=== PATIENT | male | born 1980 | race Caucasian/White ===

== ENCOUNTER 2017-09-04 08:13 | Day surgery (SDC) | payer MEDICAID, OTHER ==
--- NOTE | 2017-08-27 12:15 | RADIOLOGY REPORT (SQ) ---
EXAM DESCRIPTION: CHEST PA/LATERAL COMPLETED DATE/TIME: 08/27/2017 12:02 pm REASON FOR STUDY: PRE-OP COMPARISON: None. EXAM PARAMETERS: NUMBER OF VIEWS: two views TECHNIQUE: Digital Frontal and Lateral radiographic views of the chest acquired. RADIATION DOSE: NA LIMITATIONS: none FINDINGS: LUNGS AND PLEURA: No opacities, masses or pneumothorax. No pleural effusion. MEDIASTINUM AND HILAR STRUCTURES: No masses or contour abnormalities. HEART AND VASCULAR STRUCTURES: Heart normal size. No evidence for failure. BONES: No acute findings. HARDWARE: None in the chest. OTHER: No other significant finding. IMPRESSION: NO SIGNIFICANT RADIOGRAPHIC FINDING IN THE CHEST. TECHNICAL DOCUMENTATION: JOB ID: [id number] [employer]- All Rights Reserved Reading location - IP/workstation name: [email or web address]
[2017-08-27 12:43] LABS: HEMATOCRIT 44.1 % (37.9-51.0); HEMOGLOBIN 15.7 g/dL (13.5-17.0); MEAN CORPUSCULAR HEMOGLOBIN 31.8 pg (27.0-33.4); MEAN CORPUSCULAR HGB CONC 35.7 g/dL (32.0-36.0); MEAN CORPUSCULAR VOLUME 89 fl (80-97); PLATELET COUNT 310 10^3/uL (150-450); RED BLOOD COUNT 4.95 10^6/uL (4.35-5.55); RED CELL DISTRIBUTION WIDTH 13.8 % (11.5-14.0); WHITE BLOOD COUNT 7.7 10^3/uL (4.0-10.5)
[2017-08-27 12:57] LABS: APPEARANCE,URINE CLEAR; BILIRUBIN,URINE NEGATIVE (NEGATIVE); COLOR,URINE YELLOW; GLUCOSE, URINE NEGATIVE (NEGATIVE); KETONES,URINE NEGATIVE (NEGATIVE); LEUKOCYTE ESTERASE,URINE NEGATIVE (NEGATIVE); NITRITE,URINE NEGATIVE (NEGATIVE); PROTEIN,URINE NEGATIVE (NEGATIVE); UROBILINOGEN,URINE NEGATIVE mg/dL (<2.0)
[2017-08-27 13:05] LABS: ANION GAP 12 (5-19); BLOOD UREA NITROGEN 9 mg/dL (7-20); CALCIUM 9.8 mg/dL (8.4-10.2); CARBON DIOXIDE 26 mmol/L (22-30); CHLORIDE 106 mmol/L (98-107); GLUCOSE 78 mg/dL (75-110); POTASSIUM 4.8 mmol/L (3.6-5.0); SODIUM 143.6 mmol/L (137-145)
--- NOTE | 2017-08-27 14:31 | EKG REPORT ---
SEVERITY:- NORMAL ECG - SINUS RHYTHM : Confirmed by: Aftab Jimenez MD 27-Aug-2017 14:30:47
[~2017-09-04 08:13] MED LIST: CEFAZOLIN SODIUM 2 GM in NORMAL SALINE 100 ML IV PRN; LACTATED RINGERS 1000 ML IV PRN; LIDOCAINE 0.5% INJ-PF (5 MG/ML) 50 ML SDV SUBCUT PRN
[2017-09-04] MEDS ORDERED: BUPIVACAINE HCL 0.5 % INJ/PF 30 ML SDV ONE (09:18)
[2017-09-04] MEDS ORDERED: EPINEPHRINE INJ/PF 1 MG/1 ML AMPULE ONE ×2 (09:18→09:20)
[2017-09-04] MEDS ORDERED: FENTANYL CITRATE INJ/PF 100 MCG/2 ML AMPUL ONE ×2 (10:17→12:14)
[2017-09-04] MEDS ORDERED: MIDAZOLAM 2 MG/2 ML INJ ONE (10:17)
[2017-09-04] MEDS ORDERED: ONDANSETRON HCL INJ/PF 4 MG/2 ML SDV ONE (10:18)
[2017-09-04] MEDS ORDERED: ACETAMINOPHEN 0 ML IV ONE (10:18)
[2017-09-04] MEDS ORDERED: DEXAMETHASONE SOD PHOSPHATE INJ 4 MG/1 ML VIAL ONE (10:18)
[2017-09-04] MEDS ORDERED: PROPOFOL INJ 200 MG/20 ML VIAL IV ONE (10:18)
[2017-09-04] MEDS ORDERED: PROMETHAZINE HCL INJ 25 MG/1 ML VIAL IV PRN ×2 (11:26)
[2017-09-04] MEDS ORDERED: DIPHENHYDRAMINE HCL 50 MG/ML VIAL IV PRN (11:26)
[2017-09-04] MEDS ORDERED: FENTANYL CITRATE INJ/PF 100 MCG/2 ML AMPUL IV PRN ×3 (11:26)
[2017-09-04] MEDS ORDERED: OXYCODONE-ACETAMINOPHEN 5-325 MG TABLET PO PRN ×4 (11:26→13:05)
[2017-09-04] MEDS ORDERED: MEPERIDINE HCL/PF INJ 25 MG/1 ML DISP.SYRIN IV PRN (11:26)
[2017-09-04] MEDS ORDERED: ACETAMINOPHEN 100 ML IV ONE (12:15)
[2017-09-04] MEDS ORDERED: MORPHINE SULFATE 10 MG/ML INJ ONE (12:33)
[2017-09-04] MEDS ORDERED: LORAZEPAM INJ 2 MG/1 ML VIAL ONE (12:39)
[2017-09-04] MEDS ORDERED: LORAZEPAM INJ 2 MG/1 ML VIAL IV ONE (12:49)
[2017-09-04] MEDS ORDERED: PROMETHAZINE HCL INJ 25 MG/1 ML VIAL ONE (13:02)
--- NOTE | 2017-09-04 13:03 | Operative Report ---
Operative Report DATE OF SURGERY: 09/04/17 PREOPERATIVE DIAGNOSIS: Right knee ACL tear POSTOPERATIVE DIAGNOSIS: Same. Posterior horn lateral meniscus tear. 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 Once the tube was secured a thigh tourniquet was applied to the right lower extremity was prepped and draped in a normal surgical fashion. Timeout was done identifying the right knee has a correct site. The extremity was exsanguinated with an Esmarch and then the tourniquet was inflated at 300 mmHg 0.25% of Marcaine was injected into the anticipated portal sites. 11 blade was used to establish the anterolateral portal. Scope was introduced and the capsule was distended with sterile saline solution. Under direct visualization the anteromedial portal sites was established first by applying a spinal needle and then established with the 11 blade. Probe was introduced and a diagnostic scope was done. As noted patient had a torn ACL off of the lateral femoral wall with partial healing to the PCL. Patient also had a chondral defect on the medial femoral condyle that was about 1cm x 1 cm and only grade 3 changes. Looking at the lateral compartment patient had a tear of the posterior horn of the lateral meniscus. Attempted repair was done at this point but was unsuccessful therefore partial lateral meniscectomy was done after the tissue is no longer viable for repair. At this point I turned my attention to preparing the lateral wall and tibial spine for tunnel drilling. I used the combination of 5.5 mm shaver and 50 radiofrequency ablator to do my debridement of the torn anterior cruciate ligament and expose the lateral wall. I used a chondral pick to lyndsey where I would like to place my femoral tunnel. This was confirmed with the medial over- the-top guide. I flexed the knee as much as possible and use my spade tip guidepin and drilled through. I was able to measure about a 30 mm tunnel before I pierced the cortex and passed the pin through the lateral aspect of the thigh. I used the 10 mm low-profile reamer then to do my femoral tunnel and stopped at 25 mm in depth. I used a shaver then to clean out the bony debris. I visualized the tunnel with a camera and make sure had a back wall and did not pierced the lateral cortex. At this point I fed a FiberWire through the eyelet and passed it through the lateral aspect of the thigh. This FiberWire were then later on the shuttle through the tibial tunnel to shuttle the graft. In the meantime it was clamped outside the skin. At this point I grabbed my retro-cutter guide which was marked at [address] on the anterior cruciate ligament footprint on the tibial side. This had been cleaned off with a shaver and bur to Fregosi ablator as well. I used the scope anterior horn of the lateral meniscus as a guide as well as 7 mm anterior to the PCL. Once I was happy with the placement I did a medial incision and measured the tibial tunnel to be []. Once again I use the shaver to clean out the debris in the knee. The Achilles was preparing the back table and the made sure that I was able to pass through it 10 mm tunnel with the bone plug side and the tendinous portion. The graft had been placed in a moist sponge and ready for insertion once the tunnels were completed. I used a probe to grabbed the have the portion of the FiberWire suture that was left in the femoral tunnel and passed it through the tibial tunnel. At this point we shuttled the Achilles tendon allograft through the tibial tunnel into the femoral tunnel successfully using the bone plug to fit nicely in the femoral tunnel. I proceeded to notch the tunnel and placed a nitinol wire. I placed a 7 x 23mm bicomposite screw securing the bone plug in the femoral tunnel. I then turned my attention to the tibial tunnel where I notched it and then placed a nitinol wire for placement of the screw. While holding the leg in a reverse Vadim position by my assistant professor of art I pulled tension on the tibial side of the graft and placed my interference screw securing the graft. Vadim was used to showing good endpoint and minimal translation. Scope was introduced and I used a probe to check the tension on the anterior cruciate ligament graft. I was satisfied with the tension so at this point fluid was removed from the knee and the instruments were removed. I proceeded to close my 2 portal sites with 3-0 nylon and the tibial incision with 0 Vicryl to Vicryl and 2-0 nylon. Xeroform, 4 x 4, AVD pad, Sof-Rol was applied and then overwrapped with an Richar bandage. Tourniquet was let down and the drapes were removed. Patient was extubated and sent to PACU in stable condition.
--- NOTE | 2017-09-04 13:05 | Discharge Summary ---
Discharge Summary (SDC) - Discharge Final Diagnosis: Right knee ACL reconstruction and partial lateral meniscectomy Date of Surgery: 09/04/17 Discharge Date: 09/04/17 Treatment or Instructions: Patient instructed to follow up in 10-14 days. Patient instructed to keep dressing dry clean and intact for 4 days and then allowed to remove. At that point patient can shower and apply Band-Aids as needed. Patient can weight-bear as tolerated and do range of motion exercises as tolerated. Crutches for support and safety. Can wean crutches once stable on his feet. Patient instructed to call the office if patient develops fevers chills redness and drainage from the surgical sites. Prescriptions: Oxycodone HCl/Acetaminophen [Percocet 5-325 mg Tablet] 1 - 2 tab PO ASDIR PRN # 40 tablet PRN Reason: Referrals: EMILE BARRETO MD [Primary Care Provider] - Discharge Diet: As Tolerated Respiratory Treatments at Home: Deep Breathing/Coughing Discharge Activity: No Driving - While taking narcotics, No Lifting/Push/Pulling , Slowly Increase Activity, Walk Frequently Adaptive Devices on Discharge: Axillary Crutches Report the Following to Your Physician Immediately: Shortness of Breath, Vomiting, Increase in Pain, Fever over 101 Degrees, Unusual Bleeding, Redness, Swelling, Warmth, Drainage-Yellow, Drainage-Wright, Drainage-Green, Drainage-Foul Smelling
[2017-09-04] MEDS ORDERED: KETOROLAC TROMETHAMINE 60 MG/2 ML SDV ONE (14:31)
[2017-09-04] MEDS ORDERED: SUCCINYLCHOLINE CHLORIDE INJ 200 MG/10 ML VIAL ONE (14:31)
[2017-09-04 16:10] VITALS: BP 118/72
== END 2017-09-04 14:55 | disposition home or self-care (01) ==
LOC: OROUT 08:13
PROVIDERS: ATTEND Orthopaedic Surgery
PROC: 0MQN4ZZ Repair Right Knee Bursa and Ligament, Percutaneous Endoscopic Approach (ICD-10-PCS; 2017-09-04)
PROC: 0SBC4ZZ Excision of Right Knee Joint, Percutaneous Endoscopic Approach (ICD-10-PCS; principal; 2017-09-04 10:15)
DX: M23.351 Other meniscus derangements, posterior horn of lateral meniscus, right knee (principal); M94.261 Chondromalacia, right knee; M25.561 Pain in right knee; M23.611 Other spontaneous disruption of anterior cruciate ligament of right knee; K21.9 Gastro-esophageal reflux disease without esophagitis; Z79.899 Other long term (current) drug therapy
CPT/HCPCS: 29881; 29888; 93005; 36415; 85027; 80048; 81001; 71046; 93010; C1713 ×2; J2250; J3490; J0690; J1100; J0171; J1885; J3010; J2270; J2060; J2550; J0330; J2405; J2704; J0131; 1400